=== PATIENT | female | born 1950 | race Caucasian/White ===

== ENCOUNTER 2016-12-11 05:07 | Inpatient (IN) | payer MEDICARE, BC ==
[2016-12-11] MEDS ORDERED: Gabapentin 300 MG Cap PO ONE (05:30)
[2016-12-11] MEDS ORDERED: Scopolamine 1.5 MG Transdermal Patch TRDERM SCH (06:00)
[2016-12-11] MEDS: Lactated Ringers 1,000 ML IV SCH ×2 (06:44→13:09)
[2016-12-11] MEDS ORDERED: Ketamine 500 MG/5 ML MDV IV SCH (07:00)
[2016-12-11] MEDS ORDERED: Povidone-Iodine 10% Soln 118.25 ML Bottle ONE (07:11)
[2016-12-11] MEDS ORDERED: Thrombin (Bovine) 5,000 Unit Kit ONE (07:11)
[2016-12-11] MEDS ORDERED: Propofol 200 MG/20 ML SDV ONE ×2 (07:14→07:16)
[2016-12-11] MEDS ORDERED: Ondansetron 4 MG/2 ML SDV ONE (07:14)
[2016-12-11] MEDS ORDERED: Dexamethasone 4 MG/ML SDV ONE (07:14)
[2016-12-11] MEDS ORDERED: Rocuronium 50 MG/5 ML Vial ONE (07:14)
[2016-12-11] MEDS ORDERED: ceFAZolin 2 GM in Premix Bag 1 BAG IV ONE (07:30)
[2016-12-11] MEDS: Tranexamic Acid 730 MG in Sodium Chloride 0.9% 50 ML IV SCH ×3 (08:00→13:27)
[2016-12-11] MEDS ORDERED: Lactated Ringers 1,000 ML ONE ×2 (08:29→09:34)
[2016-12-11] MEDS ORDERED: Sodium Chloride 0.9% 10 ML ONE ×2 (09:45→10:50)
[2016-12-11] MEDS ORDERED: Phenylephrine 1% 10 MG/ML SDV ONE (09:45)
[2016-12-11] MEDS ORDERED: ceFAZolin 1 GM Vial ONE (10:50)
[2016-12-11] MEDS ORDERED: Vancomycin 1 GM SDV ONE (10:51)
[2016-12-11] MEDS: Ropivacaine 49.25 ML, Ketorolac 30 MG, EPINEPHrine 0.5 MG, cloNIDine 80 MCG, Sodium Chl... INJECT ONE ×10 (10:56→13:26)
[2016-12-11] MEDS ORDERED: fentaNYL 100 MCG/2 ML SDV IVPUSH ONE (11:57)
[2016-12-11] MEDS ORDERED: Magnesium Hydroxide 400 MG/5 ML Susp 30 ML Cup PO PRN ×2 (12:02→13:07)
[2016-12-11] MEDS ORDERED: Acetaminophen/oxyCODONE 325-5 MG Tab PO PRN (12:02)
[2016-12-11] MEDS ORDERED: HYDROmorphone 1 MG/ML Syringe IVPUSH PRN ×2 (12:02→13:07)
[2016-12-11] MEDS ORDERED: Aluminum Hydroxide/Magnesium Hydroxide/Simethicone Susp 30 ML Cup PO PRN ×2 (12:02→13:07)
[2016-12-11] MEDS ORDERED: Sennosides 8.6 MG Tab PO PRN ×2 (12:02→13:07)
[2016-12-11] MEDS ORDERED: Ondansetron 4 MG/2 ML SDV IVPUSH PRN ×2 (12:02→13:07)
[2016-12-11] MEDS ORDERED: Zolpidem 5 MG Tab PO PRN ×2 (12:02→13:07)
[2016-12-11] MEDS ORDERED: Sodium Chloride 0.9% 10 ML Syringe FLUSH PRN ×2 (12:02→13:07)
[2016-12-11] MEDS ORDERED: Naloxone 0.4 MG/ML SDV IVPUSH PRN ×2 (12:02→13:07)
[2016-12-11] MEDS ORDERED: Acetaminophen 1,000 MG in Premix Bag 1 BAG IV ONE ×2 (12:07→14:00)
[2016-12-11] MEDS ORDERED: oxyCODONE 5 MG Tab PO PRN ×2 (12:10→13:07)
[2016-12-11] MEDS ORDERED: ceFAZolin 2 GM in Sodium Chloride 0.9% 50 ML IV SCH (12:15)
[2016-12-11] MEDS ORDERED: Dexamethasone 4 MG/ML SDV IVPUSH SCH (12:15)
[2016-12-11] MEDS ORDERED: Diazepam 5 MG Tab PO PRN (13:07)
[2016-12-11] MEDS: VERIFY SCOPOLAMINE PATCH TOP SCH (13:50)
[2016-12-11] MEDS: Dexamethasone 4 MG/ML SDV IVPUSH SCH ×2 (13:58→23:12)
--- NOTE | 2016-12-11 16:24 | PCM.CONS ---
H&P History of Present Illness - General Date of Service: 12/11/16 Admit Problem/Dx: Admission Diagnosis/Problem Admission Diagnosis/Problem Spinal stenosis Source of Information: Patient, Family History Limitations: Reports: No Limitations - History of Present Illness Initial Comments - Free Text/Narative: Apryl was admitted today following a TLIF of L4 through S1 and a laminectomy from L2-S1. I was asked to see her this afternoon by Dr. Roberts for evaluation of chest pain. She reports that she first noticed the pain approximately 30 minutes ago. She describes this as a sharp pain under her left breast. The pain does not radiate. She describes it as mild to moderate intensity. The pain is a little better when she presses against her left rib cage and also when she takes a deep breath. She is not aware of anything that makes her pain worse at this time. She has never had pain like this before. She does not have associated nausea, diaphoresis or shortness of breath. She reports moderate back pain but the pain is less than pre-surgery level. No recent fevers. No exertional chest pain prior to surgery. Middle Sacral Pain Score (Numeric/FACES): 4 - Related Data Allergies/Adverse Reactions: Allergies Allergy/AdvReac Type Severity Reaction Status Date / Time No Known Allergies Allergy Verified 04/29/15 08:56 Home Medications: Home Meds Dicyclomine HCl [Dicyclomine HCl] 20 mg PO ASDIRECTED PRN 04/28/15 [History] Acetaminophen [Tylenol Extra Strength] 1,000 mg PO Q4HR PRN 12/11/16 [History] Ibuprofen 400 mg PO Q4HR PRN 12/11/16 [History] Past Medical History HEENT History: Reports: Other (See Below) Other HEENT History: reading glasses Gastrointestinal History: Reports: Irritable Bowel Syndrome Genitourinary History: Reports: Renal Calculus [employer] WORKER History: Reports: Musculoskeletal History: Reports: Arthritis, Back Pain, Chronic - Infectious Disease History Infectious Disease History: Reports: Chicken Pox, Measles - Past Surgical History HEENT Surgical History: Reports: Oral Surgery GI Surgical History: Reports: Colonoscopy Female Surgical History: Reports: Kidney stone extraction Endocrine Surgical History: Reports: Thyroidectomy, Other (See Below) Other Endocrine Surgeries/Procedures: partial thyroidectomy Musculoskeletal Surgical History: Reports: None Social & Family History - Family History Cardiac: Denies: CAD - Tobacco Use Smoking Status *Q: Former Smoker Years of Tobacco use: 30 Packs/Tins Daily: 0.5 Used Tobacco, but Quit: Yes Month Tobacco Last Used: 2014 Second Hand Smoke Exposure: No - Caffeine Use Caffeine Use: Reports: Coffee - Alcohol Use Days Per Week of Alcohol Use: 7 Number of Drinks Per Day: 1 Total Drinks Per Week: 7 - Recreational Drug Use Recreational Drug Use: No H&P Review of Systems - Review of Systems: Review Of Systems: See Below Free Text/Narrative: A complete 12 point review of systems was obtained. Pertinent positives and negatives are noted in the history of present illness. All other systems were reviewed and were negative except as noted. Exam - Exam Exam: See Below - Vital Signs Vital Signs: Last Vital Signs Temp 36.2 C 12/11/16 14:45 Pulse 72 12/11/16 16:00 Resp 16 12/11/16 16:00 BP 102/68 12/11/16 16:00 Pulse Ox 98 12/11/16 16:00 Weight: 72.631 kg - Exam Quality Assessment: Supplemental Oxygen General: Alert, Oriented, Cooperative. No: Mild Distress HEENT: Conjunctiva Clear. No: Mucosa Moist & [place] (dry), Abnormal Pupils, Scleral Icterus Neck: Supple, Trachea Midline. No: Lymphadenopathy Lungs: Clear to Auscultation, Normal Respiratory Effort Cardiovascular: Regular Rate, Regular Rhythm, Normal S1, Normal S2, Systolic Murmur (soft ROBERT left upper sternal border), Other (palpation over the left lower and lateral rib cage does not cause pain) GI/Abdominal Exam: Normal Bowel Sounds, Soft, Non-Tender, No Distention Extremities: Normal Inspection, No Pedal Edema. No: Increased Warmth Peripheral Pulses: 2+: Dorsalis Pedis (L), Dorsalis Pedis (R) Skin: Warm, Dry Neuro Extensive - Mental Status: Alert, Oriented x3, Nl Response to Commands Neuro Extensive - Motor, Sensory, Reflexes: CN II-XII Intact. No: Dysarthria, Abnormal Motor, Tremor Psychiatric: Alert, Normal Affect - Patient Data Imaging Impressions Last 24 hrs: EKG - images personally reviewed - heart rate of 72 with a normal axis. No significant ST segment changes noted. She does have some very mild diffuse T- wave inversions and/or T-wave flattening. Consult PN Assessment/Plan POD#: 0 Procedures: Procedures ASSAY GLUCOSE BLOOD QUANT (08/07/13) ASSAY OF AMYLASE (04/28/15) ASSAY OF LIPASE (04/28/15) COMP SCREEN MAMMOGRAM ADD-ON (07/05/15) COMPLETE CBC AUTOMATED (11/27/16) COMPLETE CBC W/AUTO DIFF WBC (04/28/15) COMPREHEN METABOLIC PANEL (11/27/16) COMPUTER DX MAMMOGRAM ADD-ON (01/25/16) CT ABD & PELV W/CONTRAST (07/07/14) CT ABD & PELVIS W/O CONTRAST (05/02/16) CT THORAX W/O DYE (07/31/16) CULTURE AEROBIC IDENTIFY (07/07/14) CULTURE OTHR SPECIMN AEROBIC (11/27/16) CYTOPATH C/V THIN LAYER (07/31/13) DRAIN/INJ JOINT/BURSA W/O US (08/01/16) EMERGENCY DEPT VISIT (04/28/15) HYDRATE IV INFUSION ADD-ON (04/28/15) LIPID PANEL (11/16/14) MRI LUMBAR SPINE W/O DYE (09/20/16) NEEDLE LOCALIZATION BY XRAY (08/01/16) PT EVALUATION (09/07/14) RBC SED RATE NONAUTOMATED (04/28/15) ROUTINE VENIPUNCTURE (11/27/16) THER/PROPH/DIAG INJ IV PUSH (04/28/15) THERAPEUTIC EXERCISES (09/07/14) ULTRASOUND BREAST COMPLETE (07/12/15) URINALYSIS AUTO W/O SCOPE (11/27/16) URINALYSIS AUTO W/SCOPE (07/07/14) URINE BACTERIA CULTURE (07/07/14) X-RAY EXAM HIPS BI 2 VIEWS (07/17/16) X-RAY EXAM OF FOREARM (10/31/15) X-RAY EXAM OF KNEE 3 (10/31/15) X-RAY EXAM OF WRIST (11/01/15) (1) Atypical chest pain SNOMED Code(s): 169142910 Code(s): R07.89 - OTHER CHEST PAIN Current Visit: Yes (2) Spinal stenosis of lumbar region SNOMED Code(s): 24226789 Code(s): M48.06 - SPINAL STENOSIS, LUMBAR REGION Current Visit: No Problem List Initiated/Reviewed/Updated: Yes My Orders Last 24 Hours: My Active Orders 12/11/16 19:30 TROPONIN I [CHEM] Q3H Plan: ASSESSMENT AND PLAN - Atypical chest pain - I doubt that this is cardiac chest pain and is probably related to positioning from surgery as she laid on her chest for some time. Pain is better with pressing her chest and taking a deep breath. No exertional chest pain prior to surgery. EKG does not have acute ischemic changes. Troponin level is pending. Vital signs are all stable. No history of heart disease for the patient or her family. I plan to get a second troponin level but doubt that either will be elevated. Plan to treat as if this is noncardiac chest pain assuming troponin levels come back normal. -Follow-up troponin level -Repeat troponin in 3 hours -Monitor vital signs -Pain control Spinal stenosis status post lumbar interbody fusion and multilevel laminectomy - pain is well-controlled at this time. No lower extremity neurologic deficits or red flags. -Postop cares per surgical team Dave Romero M.D. Requesting Provider: Dr Chalino Rboerts Date Consult Requested: 12/11/16 Reason for Consult: chest pain Patient History Reviewed: Yes Admission H&P Reviewed: No Notified Requestor: Yes Time Spent (in minutes): 40
--- NOTE | 2016-12-11 16:41 | OR ---
DATE OF PROCEDURE: 12/11/2016 PREOPERATIVE DIAGNOSES: 1. Lumbar stenosis, L2-S1. 2. Lumbar radiculopathy, L2-S1. 3. Foraminal stenosis bilaterally, L2-S1. 4. Vacuum disk at L3-L4, L4-L5, and L5-S1. POSTOPERATIVE DIAGNOSES: 1. Lumbar stenosis, L2-S1. 2. Lumbar radiculopathy, L2-S1. 3. Foraminal stenosis bilaterally, L2-S1. 4. Vacuum disk at L3-L4, L4-L5, and L5-S1. 5. Pars defect, right L2. CERTIFIED OPHTHALMIC ASSISTANT: Ivis Jaffe NP. PROCEDURES: 1. Posterior lateral fusion, L2-L3. 2. Transforaminal lumbar interbody fusion, L3-L4, L4-L5, and L5-S1. 3. Insertion of interbody device, L3-L4, L4-L5, and L5-S1. 4. Laminectomy required in addition to interbody placement at L2-L3, L3-L4, L4-L5, and L5- S1. 5. Segmental instrumentation, L2-S1. 6. Use of autograft from laminectomy defect using interbody intervertebral space as well as right posterolateral gutter. ANESTHESIA: General endotracheal intubation. FLUID: Lactated Ringer solution. ESTIMATED BLOOD LOSS: 700 mL. COMPLICATIONS: None. SPECIMENS: None. DISCHARGE DISPOSITION: Stable to PACU. INDICATION FOR PROCEDURE: The patient was seen in the clinic. She had failed nonoperative treatment over the years including anti-inflammatories, physical therapy, and injection. Risks and benefits of the procedure were explained to the patient. Informed consent was obtained. DETAILS OF PROCEDURE: The patient was seen preoperatively by myself and the Anesthesia staff in the preop holding area, where the operative site was marked. She was brought to the operative suite by the Anesthesia staff, where general anesthesia was administered. Neuromonitoring leads were placed. A sterile Harry catheter was placed. The fluoroscopy unit was draped in a sterile manner. She was then flipped into the Jameson table. All extremities were found to be well padded. The bed was flexed. The eyes were protected. The arms were at 90/90. The back was then prepped and draped in a sterile manner. Time-out was called identifying correct patient, correct procedure, the correct site, and antibiotics had been with appropriate period of time. The lateral sterilely draped fluoroscopy unit was then used to identify the pedicles of L2-S1. A midline incision was made over the spinous processes of L2-S1, carried down to the deep fascia. Bleeding during the case was controlled with Bovie electrocautery, bipolar electrocautery, as well as an Aquamantys 5.0 unit. Cerebellar was used for initial retraction down to the fascia. Bovie electrocautery as well as narrow Lindo was then used for dissection over the spinous processes, lamina, transverse processes, and sacral ala at L2-S1. Four 85 mm blades were then used on the Versa-Trac for retraction. We then cleaned up some soft tissue and controlled some bleeding. I then focused on pedicle screw placement starting on the left side first then taking fluoroscopy shots and then on the right. The right S1 screw measured 7 and was redirected until it came up to a 9 on neuromonitoring. All screws were 15 above. Good screw placement was confirmed on AP and lateral fluoroscopy. The spinous processes of L3 through S1 were removed as well as the caudal aspect of the L2 spinous process using rongeurs. The lamina was removed using rongeurs as well as the lobster claw technique using a drill and a Lindo to remove the lamina on block without touching the dura. This bone was then used in the intervertebral space as well as right posterolateral gutter. I then did complete facetectomies at L3-L4, L4-L5, and L5-S1 using large rongeurs as well as Kerrison rongeurs. The left L5 nerve root was very small, consistent with long ongoing compression. We then identified the disk spaces. The disk spaces were cleared with bipolar electrocautery as well as the Aquamantys 5.0 unit. I then performed disk preparation at this level by incising with a #15 blade, sequentially entering alicia from 7 to 10. I did use a distractor on the pedicle screws at each level and then using straight upgoing and downgoing curettes as well as straight and upgoing pituitaries to remove as much as disk as possible and to rough up the endplates. I then used a bone funnel and placed some autograft as well as Globus Signify allograft with a bone funnel anteriorly in the disk space followed by insertion of spacers. Spacers were at L3-L4 and L4-L5 were Rise 10 x 22 cages, 10- degree, 8 to 14, and then a 5-1 cage was 10 x 30, 10 to 17, 15-degree. All screws were 6.5 x 50 mm with the exception of the right S1 which was 6.5 x 40 in the left S1, which was 6.5 x 45. Each of these interbody devices was then expanded under direct fluoroscopy and then confirmed to have good placement on AP and lateral fluoroscopy. After this had been accomplished, I then removed some additional ligamentum flavum from the lateral recesses bilaterally. At that time, it was found that the L2 facet was inferior facet of L2 on the right, was totally mobile consistent with a pars defect. This was removed and the L2 screws were placed. We then copiously irrigated with 3 L of Betadine infused irrigation. I then drilled, decorticated the transverse processes on the right L2 to the sacral ala at S1. I inserted my rods and caps and then torqued into specification, and then inserted my graft. I then applied Floseal in the lateral recesses and then tamped any excess out with a Ray- Aurora. We then applied a small amount of vancomycin followed by in 2 packets of Gelfoam powder followed by closure with #2 Vicryl interlocking and #2 Vicryl running suture. We then irrigated again with a liter of Betadine infused irrigation followed by closure with a #2 Stratafix and #1 Stratafix, and 3-0 Stratafix followed by sterile dressing. The patient was then flipped into the supine position on the Jameson table and taken to PACU in stable condition. Neuromonitoring leads were normal throughout the procedure with decreased SSEPs on the left throughout the procedure. Chalino Roberts DO /[id number]
[2016-12-11] MEDS: ceFAZolin 2 GM in Sodium Chloride 0.9% 50 ML IV SCH (18:55)
[2016-12-11] MEDS ORDERED: Acetaminophen 325 MG Tab PO PRN (19:25)
[2016-12-11] MEDS: traMADol 50 MG Tab PO PRN (20:22)
[2016-12-12] MEDS: ceFAZolin 2 GM in Sodium Chloride 0.9% 50 ML IV SCH ×2 (01:11→09:54)
[2016-12-12] MEDS: traMADol 50 MG Tab PO PRN ×2 (01:48→09:54)
[2016-12-12] MEDS: Dexamethasone 4 MG/ML SDV IVPUSH SCH (05:15)
[2016-12-12] MEDS: VERIFY SCOPOLAMINE PATCH TOP SCH (09:42)
[2016-12-13] MEDS: traMADol 50 MG Tab PO PRN ×2 (00:43→08:59)
[2016-12-13] MEDS: VERIFY SCOPOLAMINE PATCH TOP SCH (09:29)
[2016-12-13 10:45] VITALS: BP 107/52
--- NOTE | 2016-12-13 15:17 | PCM.DCSUM1 ---
Discharge Summary - Discharge Data Discharge Date: 12/13/16 Discharge Disposition: Home, Self-Care 01 Condition: Good - Patient Summary/Data Consults: Consultations 12/11/16 12:02 OT Evaluation and Treatment [CONS] Routine Please Evaluate and Treat. OT Reason for Consult: Strengthening This query below is only for informational purposes and is not editable. PT Evaluation and Treatment [CONS] Routine Please Evaluate and Treat. PT Reason for Consult: Strengthening This query below is only for informational purposes and is not editable. 12/11/16 15:58 Consult to Physician [CONS] Routine Consulting Provider: Dave Romero Call Completed to Consulting Physician: Yes Reason for Consult: chest pain Person Notified: vickie graham Date Notified: 12/11/16 Time Notified: 15:59 - Patient Instructions Diet: Usual Diet as Tolerated Activity: Apply Ice, As Tolerated Driving: Do Not Drive Showering/Bathing: May Shower Wound/Incision Care: Keep Operative Site/Wound Site Clean and Dry, Change Dressing Daily Notify Provider of: Fever, Increased Pain, Swelling and Redness, Drainage, Nausea and/or Vomiting - Discharge Plan Prescriptions/Med Rec: Acetaminophen/oxyCODONE [Percocet 325-5 MG] 1 tab PO Q6HR PRN #90 tab PRN Reason: Pain Diazepam [Valium] 5 mg PO Q6H PRN #30 tablet PRN Reason: Spasms Sennosides [Senna] 8.6 mg PO BID PRN #60 tablet PRN Reason: Constipation Home Medications: Home Meds Dicyclomine HCl 20 mg PO ASDIRECTED PRN 04/28/15 [History] Acetaminophen [Tylenol Extra Strength] 1,000 mg PO Q4HR PRN 12/11/16 [History] Ibuprofen 400 mg PO Q4HR PRN 12/11/16 [History] Acetaminophen/oxyCODONE [Percocet 325-5 MG] 1 tab PO Q6HR PRN #90 tab 12/12/16 [ Rx] Diazepam [Valium] 5 mg PO Q6H PRN #30 tablet 12/12/16 [Rx] Sennosides [Senna] 8.6 mg PO BID PRN #60 tablet 12/12/16 [Rx] Patient Handouts: Preventing Constipation After Surgery - Discharge Summary/Plan Comment DC Time >30 min.: Yes Discharge Summary/Plan Comment: At this time patient is doing very well. She will be discharged home today. She' ll follow-up with us 1 month postoperatively. She will take her oral pain medications as needed. Patient will see us sooner if needed. We did educate the on dressing changes. - Patient Data Vitals - Most Recent: Last Vital Signs Temp 36.8 C 12/13/16 10:44 Pulse 89 12/13/16 10:44 Resp 16 12/13/16 10:44 BP 107/52 L 12/13/16 10:44 Pulse Ox 90 L 12/13/16 10:44 Weight - Most Recent: 160 lb 1.983 oz I&O - Last 24 hours: Intake & Output 12/13/16 12/13/16 12/13/16 06:59 14:59 22:59 Intake Total 1000 Output Total 700 Balance 300 Lab Results - Last 24 hrs: Laboratory Results - last 24 hr 12/13/16 12/13/16 Range/Units 04:45 04:45 WBC 11.6 H (4.5-11.0) K/uL RBC 2.68 L (3.30-5.50) M/uL Hgb 9.0 L (12.0-15.0) g/dL Hct 26.4 L (36.0-48.0) % MCV 99 H (80-98) fL MCH 34 H (27-31) pg MCHC 34 (32-36) % Plt Count 191 (150-400) K/uL Neut % (Auto) 74 H (36-66) % Lymph % (Auto) 19 L (24-44) % [place] % (Auto) 7 H (2-6) % Eos % (Auto) 0 L (2-4) % Baso % (Auto) 0 (0-1) % Sodium 139 L (140-148) mmol/L Potassium 3.7 (3.6-5.2) mmol/L Chloride 107 (100-108) mmol/L Carbon Dioxide 30 (21-32) mmol/L Anion Gap 5.7 (5.0-14.0) mmol/L BUN 15 (7-18) mg/dL Creatinine 0.6 (0.6-1.0) mg/dL Est Cr Clr Drug Dosing 81.74 mL/min Estimated GFR (MDRD) > 60 (>60) Glucose 101 (74-106) mg/dL Calcium 9.6 (8.5-10.1) mg/dL Med Orders - Current: Current Medications Discontinued Medications Acetaminophen (Tylenol) 650 mg PO Q6H PRN PRN Reason: Pain Al Hydroxide/Mg Hydroxide (Mag-Al Plus) 30 ml PO Q4H PRN PRN Reason: Indigestion Al Hydroxide/Mg Hydroxide (Mag-Al Plus) 30 ml PO Q4H PRN PRN Reason: Indigestion Cefazolin Sodium (Ancef) Confirm Administered Dose 2 gm .ROUTE .STK-MED ONE Stop: 12/11/16 10:51 Ropivacaine 49.25 ml/Ketorolac Tromethamine 30 mg/Epinephrine HCl 0.5 mg/ Clonidine HCl 80 mcg/ Sodium Chloride 48.45 ml 0 ml INJECT ONETIME ONE Stop: 12/11/16 07:01 Last Admin: 12/11/16 13:26 Dose: Not Given Dexamethasone (Dexamethasone) Confirm Administered Dose 4 mg .ROUTE .STK-MED ONE Stop: 12/11/16 07:15 Dexamethasone (Dexamethasone) 6 mg IVPUSH Q8H [facility] Stop: 12/12/16 04:16 Last Admin: 12/11/16 14:10 Dose: Not Given Dexamethasone (Dexamethasone) 6 mg IVPUSH Q8H [facility] Stop: 12/12/16 06:01 Last Admin: 12/12/16 05:15 Dose: 6 mg Diazepam (Valium) 5 mg .XX Q6H PRN PRN Reason: Spasms Diazepam (Valium.) 5 mg PO Q6H PRN PRN Reason: Spasms Fentanyl (Sublimaze) 100 mcg IVPUSH ONETIME ONE Stop: 12/11/16 11:58 Last Admin: 12/11/16 12:11 Dose: 100 mcg Fentanyl Citrate (Fentanyl) Confirm Administered Dose 500 mcg .ROUTE .STK-MED ONE Stop: 12/11/16 07:14 Gabapentin (Neurontin) 300 mg PO ONETIME ONE Stop: 12/11/16 05:31 Last Admin: 12/11/16 06:05 Dose: 300 mg Hydromorphone HCl (Dilaudid) 1 mg IVPUSH Q2H PRN PRN Reason: Pain Hydromorphone HCl (Dilaudid) 1 mg IVPUSH Q2H PRN PRN Reason: Pain Cefazolin Sodium/Dextrose 2 gm (/ Premix) 50 mls @ 100 mls/hr IV ONETIME ONE Stop: 12/11/16 07:59 Last Admin: 12/11/16 07:25 Dose: 100 mls/hr Lactated Ringer's (Ringers, Lactated) 1,000 mls @ 0 mls/hr IV ASDIRECTED RAJINDER PRN Reason: KVO Last Admin: 12/11/16 13:09 Dose: 25 mls/hr Tranexamic Acid 730 mg/ Sodium (Chloride) 57.3 mls @ 229.2 mls/hr IV Q3H [facility] Stop: 12/11/16 10:14 Last Admin: 12/11/16 12:00 Dose: 229.2 mls/hr Ketamine HCl 100 mg/ Sodium (Chloride) 100 mls @ 17 mls/hr IV ASDIRECTED [facility] Lactated Ringer's (Ringers, Lactated) Confirm Administered Dose 1,000 mls @ as directed .ROUTE .STK-MED ONE Stop: 12/11/16 08:30 Lactated Ringer's (Ringers, Lactated) Confirm Administered Dose 1,000 mls @ as directed .ROUTE .STK-MED ONE Stop: 12/11/16 09:35 Sodium Chloride (Normal Saline) Confirm Administered Dose 10 mls @ as directed .ROUTE .STK-MED ONE Stop: 12/11/16 09:46 Sodium Chloride (Normal Saline) Confirm Administered Dose 10 mls @ as directed .ROUTE .STK-MED ONE Stop: 12/11/16 10:51 Cefazolin Sodium 2 gm/ Sodium (Chloride) 50 mls @ 100 mls/hr IV Q8H [facility] Stop: 12/12/16 10:29 Last Admin: 12/12/16 09:54 Dose: 100 mls/hr Acetaminophen 1,000 mg/ Premix 100 mls @ 400 mls/hr IV NOW ONE Stop: 12/11/16 14:14 Last Admin: 12/11/16 13:51 Dose: 400 mls/hr Ketamine HCl (Ketalar) 27 mg IV ASDIRECTED [facility] Magnesium Hydroxide (Milk Of Magnesia) 30 ml PO BID PRN PRN Reason: Constipation Magnesium Hydroxide (Milk Of Magnesia) 30 ml PO BID PRN PRN Reason: Constipation Naloxone HCl (Narcan) 0.2 mg IVPUSH ONETIME PRN PRN Reason: Oversedation Naloxone HCl (Narcan) 0.2 mg IVPUSH ONETIME PRN PRN Reason: Oversedation Verify Scopolamine (Patch) 0 each TOP DAILY [facility] Last Admin: 12/13/16 09:29 Dose: Not Given Ondansetron HCl (Zofran) Confirm Administered Dose 4 mg .ROUTE .STK-MED ONE Stop: 12/11/16 07:15 Ondansetron HCl (Zofran) 8 mg IVPUSH Q4H PRN PRN Reason: Nausea/Vomiting Ondansetron HCl (Zofran) 8 mg IVPUSH Q4H PRN PRN Reason: Nausea/Vomiting Oxycodone HCl (Oxycodone) 10 mg PO Q4H PRN PRN Reason: Pain Oxycodone HCl (Oxycodone) 10 mg PO Q4H PRN PRN Reason: Pain Oxycodone/Acetaminophen (Percocet 325-5 Mg) 2 tab PO Q4H PRN PRN Reason: Pain Phenylephrine HCl (Eddie-Synephrine) Confirm Administered Dose 10 mg .ROUTE .STK- MED ONE Stop: 12/11/16 09:46 Povidone Iodine (Betadine 10% Soln) Confirm Administered Dose 1 ml .ROUTE .STK- MED ONE Stop: 12/11/16 07:12 Last Admin: 12/11/16 11:11 Dose: 40 ml Propofol (Diprivan 20 Ml) Confirm Administered Dose 200 mg .ROUTE .STK-MED ONE Stop: 12/11/16 07:15 Propofol (Diprivan 20 Ml) Confirm Administered Dose 600 mg .ROUTE .STK-MED ONE Stop: 12/11/16 07:17 Rocuronium [place] (Zemuron) Confirm Administered Dose 50 mg .ROUTE .STK-MED ONE Stop: 12/11/16 07:15 Scopolamine (Transderm-Scop) 1.5 mg TRDERM Q72H [facility] Stop: 12/14/16 04:00 Last Admin: 12/11/16 06:23 Dose: 1.5 mg Senna (Senna) 8.6 mg PO BID PRN PRN Reason: Constipation Senna (Senna) 8.6 mg PO BID PRN PRN Reason: Constipation Last Admin: 12/13/16 09:01 Dose: 8.6 mg Sodium Chloride (Saline Flush) 10 ml FLUSH ASDIRECTED PRN PRN Reason: Keep Vein Open Sodium Chloride (Saline Flush) 10 ml FLUSH ASDIRECTED PRN PRN Reason: Keep Vein Open Thrombin (Thrombin-Jmi) Confirm Administered Dose 15,000 unit .ROUTE .STK-MED ONE Stop: 12/11/16 07:12 Last Admin: 12/11/16 07:30 Dose: 10,000 unit Tramadol HCl (Ultram) 100 mg PO Q4H PRN PRN Reason: Pain Last Admin: 12/13/16 08:59 Dose: 100 mg Vancomycin HCl (Vancomycin) Confirm Administered Dose 1 gm .ROUTE .STK-MED ONE Stop: 12/11/16 10:52 Last Admin: 12/11/16 11:03 Dose: 1 gm Zolpidem Tartrate (Ambien) 5 mg PO BEDTIME PRN PRN Reason: Sleep Zolpidem Tartrate (Ambien) 5 mg PO BEDTIME PRN PRN Reason: Sleep - Exam General: Reports: Alert, Oriented Back Exam: Reports: Normal Inspection, Full Range of Motion Extremities: Normal Inspection, Normal Range of Motion, Non-Tender, No Pedal Edema Skin: Reports: Warm, Dry, Intact Wound/Incisions: Reports: Healing Well, Dressing Dry and Intact Neurological: Reports: No New Focal Deficit, Normal Gait Psy/Mental Status: Reports: Alert *Q Meaningful Use (DIS) - VTE *Q VTE Criteria *Q: - Stroke *Q Stroke Criteria *Q: - AMI *Q AMI Criteria *Q:
== END 2016-12-13 14:29 | disposition home or self-care (01) | DRG 460 ==
LOC: JP.SDS 05:07 → JP.MS 05:07 → EDSTATUS 09:00 → JP.MS 12:02
PROVIDERS: ADMIT Orthopaedic Surgery; ATTEND Orthopaedic Surgery
PROC: 0SB20ZZ Excision of Lumbar Vertebral Disc, Open Approach (ICD-10-PCS; principal; 2016-12-11)
PROC: BR1 Imaging, Axial Skeleton, Except Skull and Facial Bones, Fluoroscopy (ICD-10-PCS; principal; 2016-12-11)
PROC: 0SG Lower Joints, Fusion (ICD-10-PCS; principal; 2016-12-11)
PROC: 00NY0ZZ Release Lumbar Spinal Cord, Open Approach (ICD-10-PCS; principal; 2016-12-11)
PROC: 0SG04AJ Fusion of Lumbar Vertebral Joint with Interbody Fusion Device, Posterior Approach, Anterior Column, Percutaneous Endoscopic Approach (ICD-10-PCS; principal; 2016-12-11)
DX: M48.06 Spinal stenosis, lumbar region (principal); M51.26 Other intervertebral disc displacement, lumbar region; M54.16 Radiculopathy, lumbar region; G89.29 Other chronic pain; K58.9 Irritable bowel syndrome, unspecified
CPT/HCPCS: 36415; 76001; 80048; 82550; 84484; 85025; 93005; 94762; 97110-GP; 97162-GP; 97165-GO; 97530-GP; 97535-GP; A9270-GY; C1713; J0131; J0171; J0690; J0735; J1100; J1885; J2370; J2405; J2704; J2795; J3010; J3370; J7030; J7050; J7120